=== PATIENT | female | born 1975 | race Hispanic/Latino ===

== ENCOUNTER 2019-10-09 11:25 | Emergency (ER) | payer SELFPAY ==
--- NOTE | 2019-10-09 12:02 | ED.PDOC ---
History of Present Illness - General Chief Complaint: General Time Seen by Provider: 10/09/19 11:56 Source: patient, RN notes reviewed, Vital Signs reviewed Exam Limitations: no limitations - History of Present Illness Initial Comments: Patient is a 44-year-old female who presents the ED for 6-month history of right great toe pain. States she has had an ingrown toenail on the right great toe that has been causing pain and she has attempted to cut it out at home. For the past week she has had swelling, redness and drainage from the nail fold causing increased pain. Denies fever, nausea or other concerns at this time. States she has been told in the past that she has elevated blood pressure, but is not currently taking anything for blood pressure. Allergies/Adverse Reactions: Allergies NO KNOWN ALLERGY Allergy (Verified 10/09/19 11:56) Home Medications: Ambulatory Orders Acetaminophen W/ Codeine [Tylenol W/ CODEINE #3] 1 tablet PO Q6H PRN #20 10/09/19 Acetaminophen W/ Codeine [Tylenol W/ CODEINE #3] 1 tablet PO Q6H PRN #20 10/09/19 Cephalexin Monohydrate [Keflex] 500 mg PO QID 10 Days #40 cap 10/09/19 Cephalexin Monohydrate [Keflex] 500 mg PO QID 10 Days #40 cap 10/09/19 Sulfamethoxazole-Trimethoprim [Bactrim Ds 800-160 mg] 1 tab PO BID 10 Days #20 tab 10/09/19 Sulfamethoxazole-Trimethoprim [Bactrim Ds 800-160 mg] 1 tab PO BID 10 Days #20 tab 10/09/19 Review of Systems - Review of Systems Constitutional: Denies: chills, fever, weakness EENTM: Denies: nose congestion, throat pain Respiratory: Denies: cough, orthopnea, short of breath Cardiology: Denies: chest pain, palpitations, syncope Gastrointestinal/Abdominal: Denies: diarrhea, nausea, vomiting Genitourinary: States: no symptoms reported Musculoskeletal: States: other - right great toe pain Neurological: States: see HPI All other Systems: Reviewed and Negative Past Medical History (General) - Patient Medical History Hx Hypertension: Yes - Vaccination History Hx Influenza Vaccination: Yes - Social History Hx Tobacco Use: No - Female History Patient : Yes Expected Date of Delivery:: 03/27/16 Hx Gestational Age: 38 Family Medical History - Family History Mother Family History: Unknown Living Status: Unknown Physical Exam - Physical Exam General Appearance: Alert, Comfortable, No apparent distress Respiratory: chest non-tender, lungs clear, normal breath sounds, no respiratory distress Cardiovascular/Chest: regular rate, rhythm, no murmur Peripheral Pulses: dorsalis pedis,right: 2+, dorsalis pedis,left: 2+ Extremity: other - Patient has an ingrown right great toenail on the lateral edge. The lateral nail fold has mild edema and erythema. There is no fluctuance or drainage. Neurologic: no motor/sensory deficits, alert, normal mood/affect Progress - Progress Progress: 10/09/19 12:09 Patient has infected right great ingrown toenail. No bony tenderness. I have discussed with patient will treat with antibiotics and pain medication and local wound care discussed. I have recommended she follow-up with her PCP or a line repairer within 1 week once the infection is under control to have ingrown toenail excised. She has a history of hypertension and has elevated blood pressure in ED and is asymptomatic. I have recommended she follow-up with her PCP for blood pressure medication and further management. Strict return precautions given. 10/09/19 12:21 I have attempted to E prescribe Bactrim, Keflex and Tylenol with codeine, but E prescribe is down at this time. Handwritten prescriptions for Bactrim and Keflex were given to patient. Departure - Departure Clinical Impression: Ingrown toenail of right foot with infection, Elevated blood pressure reading, Gastroenteritis Time of Disposition: 12:14 Disposition: Discharge to Home or Self Care Condition: Good Departure Forms: ED Discharge - Pt. Copy, Patient Portal Self Enrollment Instructions: Ingrown Toenail (DC) Diet: resume usual diet Activity: increase activity as tolerated Referrals: Abraham Devi MD [Primary Care Provider] - 1-2 Days Prescriptions: Sulfamethoxazole-Trimethoprim [Bactrim Ds 800-160 mg] 1 tab PO BID 10 Days #20 tab Sulfamethoxazole-Trimethoprim [Bactrim Ds 800-160 mg] 1 tab PO BID 10 Days #20 tab Cephalexin Monohydrate [Keflex] 500 mg PO QID 10 Days #40 cap Cephalexin Monohydrate [Keflex] 500 mg PO QID 10 Days #40 cap Acetaminophen W/ Codeine [Tylenol W/ CODEINE #3] 1 tablet PO Q6H PRN #20 PRN Reason: Pain Acetaminophen W/ Codeine [Tylenol W/ CODEINE #3] 1 tablet PO Q6H PRN #20 PRN Reason: Pain Home Medications: Ambulatory Orders Acetaminophen W/ Codeine [Tylenol W/ CODEINE #3] 1 tablet PO Q6H PRN #20 10/09/19 Acetaminophen W/ Codeine [Tylenol W/ CODEINE #3] 1 tablet PO Q6H PRN #20 10/09/19 Cephalexin Monohydrate [Keflex] 500 mg PO QID 10 Days #40 cap 10/09/19 Cephalexin Monohydrate [Keflex] 500 mg PO QID 10 Days #40 cap 10/09/19 Sulfamethoxazole-Trimethoprim [Bactrim Ds 800-160 mg] 1 tab PO BID 10 Days #20 tab 10/09/19 Sulfamethoxazole-Trimethoprim [Bactrim Ds 800-160 mg] 1 tab PO BID 10 Days #20 tab 10/09/19 Additional Instructions: You have an ingrown toenail that is now infected. Keep the area clean and soak in warm water twice a day. After being on the antibiotics for 1 week I recommend he follow-up with your PCP or a line repairer to excise the ingrown nail.
[2019-10-09 12:12] VITALS: TEMP 98.3; O2SAT 100
[2019-10-09 12:32] VITALS: BP 199/105
== END 2019-10-09 12:31 | disposition home or self-care (01) ==
LOC: ER 11:25
DX: L60.0 Ingrowing nail (principal); K52.9 Noninfective gastroenteritis and colitis, unspecified; I10 Essential (primary) hypertension

== ENCOUNTER → 2019-11-20 | Outpatient (CLI) | payer SELFPAY | LOC: YCFC.O 08:23 | PROVIDERS: ATTEND Nurse Practitioner Family | DX: Z13.1 Encounter for screening for diabetes mellitus (principal); R03.0 Elevated blood-pressure reading, without diagnosis of hypertension; E66.3 Overweight ==

== ENCOUNTER → 2020-02-10 | Outpatient (CLI) | payer OTHER | LOC: YCFC.O 12:12 | PROVIDERS: ATTEND Nurse Practitioner Family | DX: Z20.828 Contact with and (suspected) exposure to other viral communicable diseases (principal) ==

== ENCOUNTER → 2020-03-11 | Outpatient (CLI) | payer SELFPAY | LOC: YCFC.O 08:04 | PROVIDERS: ATTEND Nurse Practitioner Family | DX: E66.9 Obesity, unspecified (principal); E11.9 Type 2 diabetes mellitus without complications; I10 Essential (primary) hypertension ==